=== PATIENT | female | born 2005 | race Hispanic/Latino ===

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

== ENCOUNTER 2024-09-01 20:20 | Emergency (ER) | payer OTHER ==
[2024-09-01 21:10] LABS: #Basophils 0.05 10x3/uL (0.0-0.2); %Basophils 0.6 % (0.0-1.0); %Eosinophils 1.4 % (0.0-10.0); %Lymphocytes 27.9 % (28.0-48.0); %Monocytes 9.1 % (0.0-4.0); %Neutrophils 60.3 % (31.0-61.0); Hematocrit 38.6 % (36.0-47.0); Hemoglobin 12.9 g/dL (12.0-16.0); Mean Corpuscular HGB CONC 33.4 g/dL (32.0-36.0); Mean Corpuscular Hemoglobin 29.6 pg (25.0-35.0); Mean Corpuscular Volume 88.5 fL (78.0-98.0); Mean Platelet Volume 10.4 fL (7.4-10.4); Platelet Count 313 10x3/uL (130-400); RBC Distribution Width 12.1 % (11.5-14.5); Red Blood Cell (RBC) Count 4.36 mill/uL (4.00-5.20)
[2024-09-01 21:49] LABS: ALT (SGPT) 17 U/L (8-55); AST (SGOT) 18 U/L (5-34); Albumin 3.4 g/dL (3.5-5.0); Alkaline Phosphatase 68 U/L (40-100); Anion Gap 14 mmol/L (10-20); BUN (Urea Nitrogen) 10 mg/dL (7.0-18.7); Bilirubin, Total 0.2 mg/dL (0.2-1.2); Calc. Creatinine Clearance 0 mL/min (70-130); Calcium 8.8 mg/dL (7.8-10.44); Carbon Dioxide 18 mmol/L (22-29); Chloride 110 mmol/L (98-107); Estimated GFR 133; Globulin 3.7 g/dL (2.4-3.5); Glucose 99 mg/dL (70-105); Potassium 3.9 mmol/L (3.5-5.1); Protein, Total 7.1 g/dL (6.0-8.3); Sodium 138 mmol/L (136-145)
[2024-09-01] MEDS ORDERED: diphenhydrAMINE 50 MG/ML VIAL ONE (22:20)
[2024-09-01] MEDS ORDERED: Metoclopramide HCl 10 MG (2 mL) VIAL ONE (22:20)
[2024-09-01] MEDS ORDERED: Ketorolac Tromethamine 30 MG (1 mL) VIAL ONE (22:20)
[2024-09-01 22:34] LABS: Pregnancy Test - Urine (BHCG) Negative (Negative); Pregu Control Background? CLEAR/WHITE (CLR/WHITE); Pregu Control Bar Appear? YES (CONTROL BAR); Specific Gravity 1.013 (1.002-1.036)
[2024-09-01 22:50] LABS: Bilirubin Negative (Negative); Blood, Urine Negative (Negative); CAUTI Indications for Culture Pelvic or flank pain; Clarity Clear (Clear); Glucose, Urine (Dipstick) Normal (Negative); Ketone, Urine Negative (Negative); Leukocyte 75 Leu/uL (Negative); Nitrite Negative (Negative); Protein, Urine (Dipstick) Negative (Neg-Trace); RBC/HPF 0-3 HPF (0-3); Specific Gravity, Urine 1.013 (1.002-1.036); Urobilinogen Normal mg/dL (Less than 2); pH, Urine 7.5 (5.0-9.0)
[2024-09-01 23:06] LABS: Bacteria/HPF 1+ HPF (None Seen)
[2024-09-01 23:09] LABS: Urine Culture Reflex No No
== END 2024-09-02 00:37 | disposition home or self-care (01) ==
LOC: ERS 20:20
DX: R51.9 Headache, unspecified (principal); Z55.6 Problems related to health literacy
CPT/HCPCS: 36415; 70450; 80053; 81001; 81025; 85025; 96374; 96375; J1200; J1885; J2765